=== PATIENT | female | born 1930 | race Caucasian/White ===

== ENCOUNTER 2020-09-25 22:13 | Inpatient (IN) | payer MEDICARE ==
[~2020-09-25] VITALS: Ht 152.4 cm; Wt 39.0 kg
--- NOTE | 2020-09-25 23:10 | NUR ---
RN NOTES: --RECEIVED ENDORSEMENT FROM [facility] , PATIENT Cezar, 83 Y.O., FEMALE, WAS BROUG[facility] FOR EVALUATION OF SYNCOPE ATTACK,A/OX1 ONLY/TO SELF, FORGETFULL AND CONFUSE, ABLE TO WALK GOING TO THE BATHROOM, UNABLE TO RECALL WHAT HAPPEN, PER SON--HISTORY, HIS MOTHER WAS TALKING ON THE PHONE SUDDENLY SHE LOSS HER CONSCIOUSNESS, BECOMES UNRESPONSIVE,EYES ROLLED BACK BUT NO TREMOR. SHE IS KNOWN CASE OF DEMENTIA, HYPERTENSION, CXR DONE, CT SCAN OF HEAD AND ABDOMEN DONE, NO ACUTE CHANGES, NO HEMORRHAGE, NO FRACTURE OR ANY ABNORMALITY. -SHE HAS HIGH BP WHEN SHE CAME IN RECEIVED HYDRALAZINE 10 MG IV X2, INITIAL BP-160-170, THEN DROP TO 150/70, AT AROUND 2315, PRIOR TO TRANSFER BP-202/91 2ND DOSE WAS GIVEN LATEST BP-194/76, IV CANNULA RAC G#20, NO SKIN ISSUE, AMBULANCE CAME TO ROUTE SERVICE MANAGER AT 2330.
--- NOTE | 2020-09-26 00:05 | NUR ---
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 -FALL,SAFETY, SEIZURE AND ASPIRATION PRECAUTION OBSERVED. -FEELING COLD, GIVEN WARM BLANKET. -RAPID TEST(NEGATIVE) AND PCR TEST DONE IN [facility]. -COLLECTED SPECIMEN FOR MRSA SWAB, SENT TO LAB. Addendum: 09/26/20 at 0640 by KEIRA NUÑEZ RN ADDED NOTES: PATIENT ON TELE MONITOR--SINUS RHYTHM-73
[2020-09-26 00:10] VITALS: BP 161/80
--- NOTE | 2020-09-26 00:55 | NUR ---
RN NOTES: DR. BREWSTER NOTIFIED OF THE ADMISSION, WITH THE LATEST BP OF 161/80, CORPORATE DEVELOPMENT ANALYST NOTIFIED PATIENT UNABLE TO PEE WELL, SHE RECEIVED TOTAL OF 20 MG HYDRALAZINE IV IN [facility]/ER. - ORDERED TO INSERT JEAN-BAPTISTE CATHETER AND TO ENTER PATIENT HOME MED-RECON.
--- NOTE | 2020-09-26 01:00 | NUR ---
RN NOTES: SPOKE WITH SON-AZIZA, NOTIFIED HER MOM IS IN [facility] NOW. -SON SAID SHE HAS COVID VACCINE, UNABLE TO RECALL WHEN SHE RECIEVED IT, -SHE HAS HOME MEDS: 1)VERAPAMIL 24 MG q DAILY 2)ATORVASTATIN 40 MG Q DAILY 3) OMEPRAZOLE 40 MG Q DAILY 4)DONEPEZIL 5 MG Q DAILY FOR DEMENTIA - INDIRECT SALES REPRESENTATIVE NOTIFIED OF THE PATIENT HOME MEDICATION. Addendum: 09/26/20 at 0547 by KEIRA NUÑEZ RN ADDED NOTES: HOME MEDS ENTERED IN THE MED [facility].
--- NOTE | 2020-09-26 01:15 | NUR ---
RN NOTES: EXPLAINED TO PATIENT SHE IS UNABLE TO PEE WELL AND SHE FELT DISCOMFORT, LATEX SPOOLER WAS NOTIFIED AND SHE ORDERED FOR JEAN-BAPTISTE CATH INSERTION, EXPLAINED ACCORDING TO HER LEVEL OF UNDERSTANDING, GIVEN TIME TO ASK QUESTION TO LESSEN HER WORRIES. -JEAN-BAPTISTE CATH GABONESE 16/10ML INSERTED UNDER ASEPTIC TECHNIQUE, INITIALLY UNABLE TO INSERT BECAUSE PATIENT WAS VERY TENSE, RN/CN NOTIFIED, SHE HELP TO CALM THE PATIENT , SHE BECOME MORE COOPERATIVE, ABLE TO INSERT WITH OUTPUT OF 200CC. STILL CONTINUE TO DRAIN SLOWLY, HE DISTENDED ABDOMEN, SLOWLY SOFTEN AFTER SHE WAS ABLE TO PEE.
[2020-09-26] MEDS ORDERED: hydrALAZINE HCL IV 20 MG VIAL IV PRN (01:30)
[2020-09-26] MEDS ORDERED: MAG HYDROX/AL HYDROX/SIMETH 30 ML UDC PO PRN (01:30)
[2020-09-26] MEDS ORDERED: ACETAMINOPHEN 325 MG TABLET PO PRN (01:30)
--- NOTE | 2020-09-26 02:34 | NUR ---
RN NOTES: ENOXAPARIN GIVEN AFTER VERIFIED AND RELEASED BY THE PHARMACY, SPOKE WITH CRISTINA.
[2020-09-26] MEDS: ENOXAPARIN SODIUM 40 MG/0.4 ML DISP.SYRIN SQ SCH ×2 (02:37→21:07)
[2020-09-26] MEDS ORDERED: DONE5TAB34 PO (02:49)
[2020-09-26] MEDS ORDERED: ATOR40TA GT (02:49)
[2020-09-26] MEDS ORDERED: OMEP40CA21 PO (02:49)
[2020-09-26] MEDS ORDERED: VERA240C2 PO (02:49)
--- NOTE | 2020-09-26 02:53 | NUR ---
RN NOTES: AT [address] DRAFTER ELECTRONIC CAME IN TO DO ECHO AND CAROTID DOPPLER FOR THE PATIENT SHE IS STILL AWAKE.
[2020-09-26 04:00] VITALS: BP 148/87
--- NOTE | 2020-09-26 05:13 | NUR ---
RN NOTES; CALLS AND NEEDS ATTENDED, SHE IS COMPLAINING SHE HAS THE URGE TO URINATE, EXPLAINED TO HER SHE IS ON JEAN-BAPTISTE CATH, DRAINING WELL INTO YELLOWISH COLORED URINE AT 2OOCC LEVEL, SHE WAS SAYING:I WANNA GET UP AND URINATE", SHOWED TO HER THAT HER CATHETER IS DRAINING, ASSESSED ABDOMEN ITS MORE SOFTER NOW, UNLIKE PRIOR TO CATHETERIZATION SHE HAS DISTENDED BLADDER. -SHE UNDERSTAND THEN SHE KEEP QUIET, TRYING TO CONVINCE HER TO GO TO SLEEP, SHE LOOKS ANXIOUS AND WORRIED SHE IS TELLING SHE CANNOT SLEEP, ENCOURAGE TO DEEP BREATH, GIVEN WARM BLANKET, SHE FELT COLD.
[2020-09-26] MEDS: BLOOD SUGAR DIAGNOSTIC 1 EACH STRIP IN SCH ×6 (06:21→21:13)
--- NOTE | 2020-09-26 06:21 | NUR ---
RN NOTES: -BLOOD SUGAR CHECKED-101, WILL CONTINUE TO MONITOR FOR ANY SIGN OF HYPER OR HYPOGLYCEMIA. -URINE OUTPUT 300CC, HAD BM SMALL-MODERATE AMOUNT 2X. -CALLS AND NEEDS ATTENDED.
--- NOTE | 2020-09-26 07:04 | NUR ---
RN NOTES: ON NPO, TELE MONITOR CONTINUE SINUS RHYTHM-75, JEAN-BAPTISTE CATH DRAINING WELL, FOR PT, OT,ST EVAL, FOR NEPHROLOGY,CARDIOLOGY CONSULT. FOR SWALLOW AND SPEECH EVAL BY ST, FOR LABS IN THE MORNING, ENDORSED FOR CONTINUITY OF CARE
--- NOTE | 2020-09-26 07:40 | NUR ---
TELE/RN OPENING NOTES RECEIVED PATIENT IN BED, ALERT AND ORIENTED X1-2, ABLE TO MAKE NEEDS KNOWN. STABLE ON ROOM AIR. ON TELEMONITOR WITH A NANCY OF SR 70'S. JEAN-BAPTISTE CATHETER IN PLACED DRAINING TO A CLEAR YELLOW URINE. CURRENTLY ON NPO PENDING SWALLOW EVAL. SAFETY PRECAUTIONS IN PLACED: BED LOCKED ON LOWEST POSITION, SIDE RAILS UPX2, CALL LIGHT WITHIN REACH. WILL CONTINUE TO MONITOR PATIENT.
[2020-09-26 08:00] VITALS: BP 176/105
[2020-09-26 08:34] LABS: BASOPHILS % (AUTO) 0.3 % (0.0-2.0); EOSINOPHILS % (AUTO) 0.5 % (0.0-6.0); HEMATOCRIT 43 % (33-45); HEMOGLOBIN 14.3 g/dL (11.5-14.8); LYMPHOCYTES # (AUTO) 4.7 K/uL (0.8-4.8); LYMPHOCYTES % (AUTO) 39.5 % (20.0-44.0); MEAN CORPUSCULAR HGB CONC 33 g/dl (31.0-36.0); MEAN CORPUSCULAR VOLUME 99 fL (82-100); MONOCYTES # (AUTO) 0.5 K/uL (0.1-1.30); MONOCYTES % (AUTO) 4.5 % (2.0-12.0); NEUTROPHILS # (AUTO) 6.5 K/uL (1.8-8.9); NEUTROPHILS % (AUTO) 55.2 % (43.0-81.0); PLATELET COUNT (AUTO) 364 K/uL (150-450); RED BLOOD CELL COUNT(AUTO) 4.37 MIL/uL (4.0-5.2); WHITE BLOOD COUNT (AUTO) 11.8 K/uL (4.3-11.0)
[2020-09-26] MEDS: ASPIRIN 81 MG TAB.CHEW PO SCH (09:08)
[2020-09-26] MEDS: PANTOPRAZOLE 40 MG VIAL IV SCH (09:08)
--- NOTE | 2020-09-26 09:17 | NUR ---
TELE/RN NOTES- ORTHOSTATIC BLOOD PRESSURE DIAL LATHE OPERATOR REPORTED HIGH BP READING OF 190/90. RN ASSESSED PATIENT. NO SYMPTOMS NOTED. PER PATIENT, HER USUAL BP IS ON THE 160'S SYSTOLIC. RN DID ORTHOSTATIC BP READING. WITH THE FOLLOWING READINGS LAYING (5MINS)- 199/97 P- 75, STANDING (1 MIN)- 157/107 P-99, STANDING (3 MINS)- 176/105 P 100. PATIENT GIVEN APRESOLINE 10MG/0.5ML VIA IV PUSH TO LOWER DOWN BP. WILL MONITOR PATIENT.
[2020-09-26] MEDS ORDERED: Medication Not On Formulary EA (Omeprazole 40 MG) PO SCH (09:30)
[2020-09-26 09:35] LABS: CHOLESTEROL 259 mg/dL (<200); HDL CHOLESTEROL 119 mg/dL (40-60); LDL 116 mg/dL (0-99); THYROID STIMULATING HORMONE 8.889 uIU/mL (0.358-3.74); TRIGLYCERIDES 80 mg/dL (30-150)
[2020-09-26] MEDS: DONEPEZIL 5 MG TABLET PO SCH (09:57)
[2020-09-26] MEDS: ATORVASTATIN 40 MG TABLET PO SCH (09:58)
[2020-09-26] MEDS ORDERED: IV NS 0.9% 1,000 ML IV PRN (10:00)
[2020-09-26] MEDS: VERAPAMIL SR 120 MG TABLET.SA PO SCH (10:20)
--- NOTE | 2020-09-26 10:20 | NUR ---
TELE/RN NOTES- RECHECK BP RECHECK BP- 137/70, P-75. WILL CONTINUE TO MONITOR.
[2020-09-26 10:29] LABS: ALANINE AMINOTRANSFERASE 26 U/L (12-78); ALBUMIN 4.5 g/dL (3.4-5.0); ALKALINE PHOSPHATASE 127 U/L (46-116); ASPARTATE AMINOTRANSFERASE 25 U/L (15-37); BILIRUBIN,TOTAL 0.5 mg/dL (0.2-1.0); CALCIUM, SERUM 9.6 mg/dL (8.5-10.1); CARBON DIOXIDE 29 mmol/L (21-32); CHLORIDE 100 mmol/L (98-107); CREATININE 0.6 mg/dL (0.6-1.3); GLUCOSE 93 mg/dL (74-106); MAGNESIUM 2.3 mg/dL (1.8-2.4); PHOSPHORUS 3.3 mg/dL (2.5-4.9); POTASSIUM 3.2 mmol/L (3.5-5.1); SODIUM SERUM 138 mmol/L (136-145); TOTAL PROTEIN, SERUM 7.9 g/dL (6.4-8.2); UREA NITROGEN, BLOOD 19 mg/dL (7-18)
--- NOTE | 2020-09-26 14:20 | NUR ---
TELE/RN NOTES DR. BANKS NOTIFIED POTASSIUM IS 3.2 MD ORDERED POTASSIUM 40 MEQ PO ONCE. VERIFIED AND CARRIED OUT ORDERS.
[2020-09-26] MEDS ORDERED: POTASSIUM CHLORIDE 20 MEQ TAB.PRT.SR PO ONE (14:30)
[2020-09-26 16:00] VITALS: BP 154/74
--- NOTE | 2020-09-26 16:00 | NUR ---
TELE/RN NOTES- DVT PUMP PATIENT REFUSED MECHANICAL DVT PUMP. EXPLAINED BENEFITS TO PATIENT AND SON CIELO AT BEDSIDE, PATIENT STILL REFUSED. PATIENT WAS EVALUATED BY PT EARLIER TODAY AND IS AMBULATORY AND ACTIVELY GOES TO THE BATHROOM FOR BM. PER PATIENT SHE DOES NOT NEED MECHANICAL DVT PUMP. WILL CONTINUE TO MONITOR.
[2020-09-26] MEDS: ENSURE ENLIVE 237 ML LIQUID (VANILLA) PO SCH (17:56)
--- NOTE | 2020-09-26 19:30 | NUR ---
RN OPENING NOTE PATIENT IS IN BED, SON AT BEDSIDE. PATIENT IS A/O X 1-2. PATIENT IS ON RA, TOLERATING AT 97% O2 SAT, BREATHING EVEN AND UNLABORED. IV ACCESS PATENT AND INTACT. DOES NOT COMPLAIN OF ANY PAIN OR DISCOMFORT AT THIS TIME. SAFETY MEASURES IN PLACE: CALL LIGHT WITHIN REACH, SIDE RAILS UP X 3, BED IN LOCKED AND IN LOWEST POSITION, BED ALARM ON, WILL MONITOR PATIENT CLOSELY.
--- NOTE | 2020-09-26 19:38 | NUR ---
TELE/RN CLOSING NOTES PATIENT IN BED, ALERT AND ORIENTED X1-2, ABLE TO MAKE NEEDS KNOWN. STABLE ON ROOM AIR. ON TELEMONITOR WITH A READING OF SR 70'S. JEAN-BAPTISTE CATHETER IN PLACED DRAINING TO A CLEAR YELLOW URINE. ALL NEEDS MET. SAFETY PRECAUTIONS IN PLACED: BED LOCKED ON LOWEST POSITION, SIDE RAILS UPX2, CALL LIGHT WITHIN REACH. WILL ENDORSE TO THE NEXT SHIFT FOR CHAVEZ.
[2020-09-26 20:00] VITALS: BP 126/60
[2020-09-26] MEDS ORDERED: SIMVASTATIN 10 MG TABLET PO SCH (22:00)
--- NOTE | 2020-09-26 22:00 | NUR ---
BS 106 MG/DL. SNACKS OFFERED AND NO COVERAGE GIVEN.
[2020-09-27] VITALS: BP 139/73
--- NOTE | 2020-09-27 00:48 | NUR ---
RN CHAVEZ NOTE PATIENT'S CARE TRANSFERRED TO [facility]. PATIENT STABLE AT THIS TIME. TELE MONITOR READS 78 BPM SR.
[2020-09-27 04:00] VITALS: BP 146/81
[2020-09-27 06:46] LABS: BILIRUBIN,URINE NEGATIVE (NEGATIVE); COLOR,URINE YELLOW (YELLOW); LEUKOCYTE ESTERASE ,URINE TRACE (NEGATIVE); NITRITE, URINE NEGATIVE (NEGATIVE); PH,URINE 6.5 (5.0-8.0); PROTEIN,URINE 30 mg/dl (NEGATIVE); UGLUCOSE NEGATIVE (NEGATIVE); UROBILINOGEN,URINE 0.2 EU/dL (0.2)
[2020-09-27] MEDS: BLOOD SUGAR DIAGNOSTIC 1 EACH STRIP IN SCH (07:37)
[2020-09-27 08:02] LABS: RBC,URINE TOO NUMEROUS TO COUN /HPF (0-2)
[2020-09-27 08:03] LABS: BACTERIA,URINE None seen /HPF (None Seen); SQUAMOUS EPITHELIAL CELL,UR None Seen /HPF (None Seen)
[2020-09-27] MEDS: DONEPEZIL 5 MG TABLET PO SCH (09:02)
[2020-09-27] MEDS: ASPIRIN 81 MG TAB.CHEW PO SCH (09:02)
[2020-09-27] MEDS: PANTOPRAZOLE 40 MG VIAL IV SCH (09:02)
[2020-09-27] MEDS: ATORVASTATIN 40 MG TABLET PO SCH (09:02)
--- NOTE | 2020-09-27 09:02 | NUR ---
SS consult received over the weekend for stroke. SW will follow up at a later time.
[2020-09-27] MEDS: ENSURE ENLIVE 237 ML LIQUID (VANILLA) PO SCH (09:03)
[2020-09-27 09:04] VITALS: BP 129/69
[2020-09-27] MEDS: VERAPAMIL SR 120 MG TABLET.SA PO SCH (09:04)
--- NOTE | 2020-09-27 09:45 | NUR ---
TELE/RN OPENING NOTES RECEIVED PATIENT IN BED AWAKE ALERT AND ORIENTED X 3. PATIENT IN ON ROOM AIR SATURATING WELL. PATIENT IN NO APPARENT RESPIRATORY DISTRESS NOTED. NO COMPLAINED OF PAIN NOTED AT THIS TIME. TELE MONITOR READING SINUS RHYTHM 73 BPM. WILL CONTINUE TO MONITOR.
--- NOTE | 2020-09-27 11:44 | NUR ---
RN NOTES PATIENTS IS ALERT AND ORIENTED X3. PATIENT IS ON ROOM AIR SATURATION 97%. PATIENT IN NO APPARENT RESPIRATORY DISTRESS NOTED. NO COMPLAINED OF PAIN NOTED AT THIS TIME. PATIENT SEEN AND EXAMINED BY MD WITH ORDERS MADE AND CARRIED OUT. ALL DUE MEDICATIONS WAS GIVEN. JEAN-BAPTISTE CATHETER WAS REMOVED AND PATIENT VOID BEFORE DISCHARGE. DISCHARGED INSTRUCTIONS WAS GIVEN AND PATIENT VERBALIZED UNDERSTANDING. PATIENT LEFT IN MEDICALLY STABLE CONDITION IN CLASSROOM TUTOR BY CIELO MENG VIA PRIVATE CAR.
--- NOTE | 2020-09-29 14:20 | NUR ---
Gear Design Engineer note: SS consult requested for stroke. SW attempted to interview patient in the med-surg unit. Upon arrival, PASTOR was notified that the patient was discharged. No further SS intervention at this time, however, SW will remain available as needed.
== END 2020-09-27 11:43 | disposition home or self-care (01) | DRG 640 ==
LOC: TELE 23:54
PROVIDERS: ADMIT Registered Nurse; ATTEND Internal Medicine
DX: E86.0 Dehydration (principal); N17.0 Acute kidney failure with tubular necrosis; N39.0 Urinary tract infection, site not specified; F03.90 Unspecified dementia, unspecified severity, without behavioral disturbance, psychotic disturbance, mood disturbance, and anxiety; E78.5 Hyperlipidemia, unspecified; I10 Essential (primary) hypertension; K21.9 Gastro-esophageal reflux disease without esophagitis; Z79.899 Other long term (current) drug therapy
CPT/HCPCS: 36415; 80053-TC; 80061-TC; 81001; 82962-TC; 83735-TC; 84100-TC; 84439-TC; 84443-TC; 84484-TC; 85025-TC; 85610-TC; 85730-TC; 87081-TC; 92521; 92526; 93307-TC; 93880-TC; 97110-TC; 97116-TC; 97530-TC; C9113; G0378; J0360; J1650; J7030